=== PATIENT | female | born 1990 | race African-American/Black ===

== ENCOUNTER 2024-03-24 15:12 | Emergency (ER) | payer SELFPAY ==
[2024-03-24 15:34] VITALS: BP 129/80; PULSE 81; RESP 19; TEMP 98.3; BMI 22.4
[2024-03-24 17:22] LABS: BASO % 0.4 % (0-2.0); EOS % 0.5 % (0-4.5); HEMOGLOBIN 10.8 GM/dL (10.7-15.3); LYMPH % 28.2 % (8-40); MCH 26.4 pg (25.7-33.7); MCHC 31.7 g/dl (32.0-36.0); MEAN CELL VOLUME 83.1 fl (80-96); MEAN PLT VOLUME 9.5 fl (7.5-11.1); MONO % 9.7 % (3.8-10.2); NEUT % 61.2 % (42.8-82.8); PLATELET COUNT 206 10^3/uL (134-434); RBC 4.09 M/mm3 (3.60-5.2); RDW 15.9 % (11.6-15.6); WHITE BLOOD COUNT 7.7 K/mm3 (4.0-10.0)
[2024-03-24] MEDS: SODIUM CHLORIDE 0.9% 500 ML INFUS.BAG IV ONE (17:22)
[2024-03-24] MEDS: FAMOTIDINE 20 MG/50 ML IVPB 20 MG/50 ML MG IVPB ONE (17:22)
[2024-03-24] MEDS: MAG HYDROX/AL HYDROX/SIMETH 30 ML UNIT-DOSE CUP PO ONE (17:22)
[2024-03-24] MEDS: ONDANSETRON 4 MG/2 ML VIAL IVPUSH ONE (17:22)
[2024-03-24] MEDS: ACETAMINOPHEN 1000 MG/100 ML BAG IVPB ONE (17:22)
[2024-03-24 17:42] LABS: POTASSIUM 3.9 mmol/L (3.5-5.1)
[2024-03-24 17:44] LABS: CALCIUM 8.6 mg/dL (8.5-10.1)
[2024-03-24 17:45] LABS: ALBUMIN 3.8 g/dl (3.4-5.0); BLOOD UREA NITROGEN 10.3 mg/dL (7-18)
[2024-03-24 17:48] LABS: CREATININE 0.6 mg/dL (0.55-1.3)
[2024-03-24 17:49] LABS: BILIRUBIN,TOTAL 0.5 mg/dL (0.2-1)
[2024-03-24] MEDS: KETOROLAC TROMETHAMINE 15 MG/ML VIAL IVPUSH ONE (18:05)
[2024-03-24] MEDS ORDERED: KETOROLAC TROMETHAMINE 15 MG/ML VIAL ONE (18:06)
== END 2024-03-24 18:43 | disposition home or self-care (01) ==
LOC: JER 15:12
PROC: 3E033GC Introduction of Other Therapeutic Substance into Peripheral Vein, Percutaneous Approach (ICD-10-PCS; principal; 2024-03-24)
PROC: 3E033GC Introduction of Other Therapeutic Substance into Peripheral Vein, Percutaneous Approach (ICD-10-PCS; 2024-03-24)
PROC: 3E0333Z Introduction of Anti-inflammatory into Peripheral Vein, Percutaneous Approach (ICD-10-PCS; 2024-03-24)
DX: D57.00 Hb-SS disease with crisis, unspecified (principal); R11.2 Nausea with vomiting, unspecified; R19.7 Diarrhea, unspecified; R53.83 Other fatigue; R52 Pain, unspecified; R53.81 Other malaise; A08.4 Viral intestinal infection, unspecified; Z20.822 Contact with and (suspected) exposure to COVID-19
CPT/HCPCS: 0241U-QW; 36415; 80053; 83690; 84703; 85025; 85045; 93005; 93010; 99284-25

== ENCOUNTER 2024-06-01 23:19 | Emergency (ER) | payer SELFPAY ==
[2024-06-01 23:38] VITALS: BP 113/69; PULSE 84; RESP 20; TEMP 97.1; BMI 24.5
[2024-06-02] MEDS: morphine CARPU-JECT 2 MG/1 ML DISP.SYRIN IVPUSH ONE (00:52)
[2024-06-02] MEDS: ACETAMINOPHEN 1000 MG/100 ML BAG IVPB ONE (00:52)
[2024-06-02 01:21] LABS: HEMOGLOBIN 10.3 GM/dL (10.7-15.3)
[2024-06-02 01:22] LABS: BASO % 0.6 % (0-2.0); EOS % 1.3 % (0-4.5); HEMATOCRIT 32.5 % (32.4-45.2); LYMPH % 34.5 % (8-40); MCHC 31.7 g/dl (32.0-36.0); MEAN CELL VOLUME 78.8 fl (80-96); MEAN PLT VOLUME 9.1 fl (7.5-11.1); MONO % 8.1 % (3.8-10.2); NEUT % 55.5 % (42.8-82.8); PLATELET COUNT 255 10^3/uL (134-434); RBC 4.13 M/mm3 (3.60-5.2); RDW 17.2 % (11.6-15.6); WHITE BLOOD COUNT 7.6 K/mm3 (4.0-10.0)
[2024-06-02 01:45] LABS: POTASSIUM 3.7 mmol/L (3.5-5.1)
[2024-06-02 01:48] LABS: ALBUMIN 3.5 g/dl (3.4-5.0); BLOOD UREA NITROGEN 12.8 mg/dL (7-18)
[2024-06-02 01:51] LABS: CREATININE 0.6 mg/dL (0.55-1.3)
[2024-06-02 01:52] LABS: BILIRUBIN,TOTAL 0.3 mg/dL (0.2-1); TOT PROT 6.9 g/dl (6.4-8.2)
[2024-06-02] MEDS ORDERED: ONDANSETRON *ODT* 4 MG TABLET ONE (02:14)
[2024-06-02] MEDS: ONDANSETRON *ODT* 4 MG TABLET SL ONE (02:16)
[2024-06-02] MEDS: LACTATED RINGERS SOLUTION 1000 ML INFUS.BAG IV ONE (02:16)
[2024-06-02] MEDS ORDERED: METOCLOPRAMIDE HCL 10 MG TABLET (FP) PO ONE (02:34)
[2024-06-02 02:35] LABS: HIV INTERPRETATION NEGATIVE (NEGATIVE)
== END 2024-06-02 05:48 | disposition home or self-care (01) ==
LOC: JER 23:19
DX: O26.891 Other specified pregnancy related conditions, first trimester (principal); R10.30 Lower abdominal pain, unspecified; Z3A.01 Less than 8 weeks gestation of pregnancy
CPT/HCPCS: 36415; 76817-TC; 80053; 84702; 85025; 86803; 86850; 86900; 86901; 87389; 99284-25; Q0162

== ENCOUNTER 2025-04-30 21:33 | Emergency (ER) | payer OTHER ==
[2025-04-30 21:56] VITALS: BP 118/60; PULSE 85; RESP 18; TEMP 97.9; BMI 27.3
[2025-04-30] MEDS ORDERED: ACETAMINOPHEN 325 MG TABLET (FP) ONE (23:08)
[2025-04-30] MEDS: ACETAMINOPHEN 325 MG TABLET (FP) PO ONE (23:11)
[2025-04-30 23:12] LABS: ABSOLUTE IMMATURE GRANULOCYTES 0.02 x10^3/uL (0.0-0.031); BASOPHILS # 0.05 x10^3/uL (0.01-0.08); EOSINOPHIL % 1.6 % (0.7-5.8); EOSINOPHILS # 0.12 x10^3/uL (0.04-0.36); MCHC 30.0 g/dl (32.2-35.5); MEAN CELL VOLUME 88.9 fl (79.4-94.8); MEAN PLT VOLUME 10.8 fl (9.4-12.3); MONOCYTE # 0.68 x10^3/uL (0.24-0.86); MONOCYTE % 9.2 % (4.7-12.5); RDW 14.4 % (12.1-16.8)
[2025-04-30] MEDS: ALBUTEROL SO4 2.5/IPRATROPIUM 0.5 INH SOL 3 ML VIAL.NEB. NEB ONE (23:12)
[2025-04-30] MEDS: ACETAMINOPHEN 1000 MG/100 ML BAG IVPB ONE (23:13)
[2025-04-30 23:39] LABS: CO2 23.0 mmol/L (21-32); GLUCOSE,RANDOM 103.0 mg/dL (74-106)
[2025-04-30 23:42] LABS: SGOT/AST 13.0 U/L (15-37); SGPT/ALT 18.0 U/L (13-61)
[2025-04-30 23:43] LABS: CREATININE 0.7 mg/dL (0.55-1.3)
[2025-04-30 23:44] LABS: TOT PROT 7.5 g/dl (6.4-8.2)
[2025-04-30 23:45] LABS: ALK PHOS 57.0 U/L (45-117)
== END 2025-05-01 00:30 | disposition home or self-care (01) ==
LOC: JER 21:33
DX: R05.9 Cough, unspecified (principal); R11.0 Nausea; R53.83 Other fatigue; R50.9 Fever, unspecified; M54.50 Low back pain, unspecified; R06.02 Shortness of breath; N64.4 Mastodynia
CPT/HCPCS: 36415; 71046-TC-FY; 80053; 83735; 84703; 85025; 86803; 87389; 99284-25

== ENCOUNTER 2025-05-29 23:04 | Emergency (ER) | payer OTHER ==
[2025-05-29 23:11] VITALS: BP 115/68; PULSE 85; RESP 20; TEMP 98.1; BMI 26.0
[2025-05-30 00:06] LABS: ABSOLUTE IMMATURE GRANULOCYTES 0.01 x10^3/uL (0.0-0.031); BASOPHILS # 0.03 x10^3/uL (0.01-0.08); EOSINOPHIL % 1.4 % (0.7-5.8); EOSINOPHILS # 0.10 x10^3/uL (0.04-0.36); MCHC 30.6 g/dl (32.2-35.5); MEAN CELL VOLUME 88.0 fl (79.4-94.8); MEAN PLT VOLUME 11.6 fl (9.4-12.3); MONOCYTE # 0.41 x10^3/uL (0.24-0.86); MONOCYTE % 5.9 % (4.7-12.5); RDW 14.4 % (12.1-16.8)
[2025-05-30] MEDS ORDERED: ACETAMINOPHEN INJECTION 100 ML ONE (00:10)
[2025-05-30] MEDS ORDERED: ONDANSETRON 4 MG/2 ML VIAL ONE (00:11)
[2025-05-30 00:33] LABS: GLUCOSE,RANDOM 94.0 mg/dL (74-106)
[2025-05-30 00:34] LABS: TOT PROT 7.8 g/dl (6.4-8.2)
[2025-05-30 00:35] LABS: CO2 23.0 mmol/L (21-32)
[2025-05-30 00:36] LABS: ALK PHOS 55.0 U/L (40-150)
[2025-05-30 00:39] LABS: CREATININE 0.62 mg/dL (0.55-1.3); SGOT/AST 18.0 U/L (5-34); SGPT/ALT 13.0 U/L (0-55)
[2025-05-30 00:55] LABS: HCV DIAGNOSTIC IN-HOUSE W/RFLX NON-REACTIVE (NONREACTIVE)
[2025-05-30 00:56] LABS: HIV INTERPRETATION NEGATIVE (NEGATIVE)
[2025-05-30] MEDS ORDERED: ONDANSETRON *ODT* 4 MG TABLET ONE (01:09)
[2025-05-30] MEDS: ONDANSETRON *ODT* 4 MG TABLET SL ONE (01:11)
[2025-05-30] MEDS: ACETAMINOPHEN 1000 MG/100 ML BAG IVPB ONE (05:04)
[2025-05-30] MEDS: ONDANSETRON 4 MG/2 ML VIAL IVPUSH ONE (05:04)
[2025-05-30] MEDS: SODIUM CHLORIDE 0.9% 500 ML INFUS.BAG IV ONE (05:04)
== END 2025-05-30 08:42 | disposition home or self-care (01) ==
LOC: JER 23:04
PROC: 3E033NZ Introduction of Analgesics, Hypnotics, Sedatives into Peripheral Vein, Percutaneous Approach (ICD-10-PCS; principal; 2025-05-29)
DX: R10.11 Right upper quadrant pain (principal); R10.12 Left upper quadrant pain; R10.31 Right lower quadrant pain; R10.32 Left lower quadrant pain; R11.2 Nausea with vomiting, unspecified; R19.7 Diarrhea, unspecified; F43.9 Reaction to severe stress, unspecified
CPT/HCPCS: 36415; 80053; 83690; 85025; 86803; 87389; 99284-25; Q0162

== ENCOUNTER 2025-06-02 22:56 | Emergency (ER) | payer OTHER ==
[2025-06-02 23:01] VITALS: BP 115/70; PULSE 60; RESP 18; TEMP 97.7; BMI 26.0
[2025-06-03] MEDS ORDERED: ACETAMINOPHEN INJECTION 100 ML ONE (00:15)
[2025-06-03] MEDS ORDERED: ONDANSETRON 4 MG/2 ML VIAL ONE (00:15)
[2025-06-03] MEDS ORDERED: KETOROLAC TROMETHAMINE 15 MG/ML VIAL ONE (00:18)
[2025-06-03] MEDS: ACETAMINOPHEN 1000 MG/100 ML BAG IVPB ONE (00:42)
[2025-06-03] MEDS: KETOROLAC TROMETHAMINE 15 MG/ML VIAL IVPUSH ONE (00:42)
[2025-06-03 00:48] LABS: ABSOLUTE IMMATURE GRANULOCYTES 0.01 x10^3/uL (0.0-0.031); BASOPHILS # 0.03 x10^3/uL (0.01-0.08); EOSINOPHIL % 1.4 % (0.7-5.8); EOSINOPHILS # 0.09 x10^3/uL (0.04-0.36); MCHC 29.6 g/dl (32.2-35.5); MEAN CELL VOLUME 89.8 fl (79.4-94.8); MEAN PLT VOLUME 11.3 fl (9.4-12.3); MONOCYTE # 0.39 x10^3/uL (0.24-0.86); MONOCYTE % 6.3 % (4.7-12.5); RDW 14.3 % (12.1-16.8)
[2025-06-03] MEDS: SODIUM CHLORIDE 0.9% 500 ML INFUS.BAG IV ONE (01:04)
[2025-06-03] MEDS: ONDANSETRON 4 MG/2 ML VIAL IVPUSH ONE (01:04)
[2025-06-03 01:06] LABS: BG HCT 36.0 % (32.4-45.2); VENOUS BASE EXCESS -1.5 mmol/L (-2-2); VENOUS O2 SATURATION 38.5 % (70-80); VENOUS PCO2 50.7 mmHg (38-52); VENOUS PH 7.313 (7.310-7.410)
[2025-06-03 01:09] LABS: GLUCOSE,RANDOM 81.0 mg/dL (74-106)
[2025-06-03 01:10] LABS: TOT PROT 7.9 g/dl (6.4-8.2)
[2025-06-03 01:11] LABS: CO2 25.0 mmol/L (21-32)
[2025-06-03 01:13] LABS: ALK PHOS 54.0 U/L (40-150)
[2025-06-03 01:15] LABS: SGOT/AST 22.0 U/L (5-34); SGPT/ALT 19.0 U/L (0-55)
[2025-06-03 01:16] LABS: CREATININE 0.77 mg/dL (0.55-1.3)
[2025-06-03 02:22] LABS: HCV DIAGNOSTIC IN-HOUSE W/RFLX NON-REACTIVE (NONREACTIVE); HIV INTERPRETATION NEGATIVE (NEGATIVE)
[2025-06-03] MEDS ORDERED: POTASSIUM CHLORIDE ORAL LIQUID 20 MEQ/15 ML ONE (02:39)
[2025-06-03] MEDS: POTASSIUM CHLORIDE ORAL LIQUID 20 MEQ/15 ML PO ONE (02:43)
[2025-06-03] MEDS ORDERED: KCL 10 MEQ IVPB 10 MEQ/100 ML INFUS.BAG IVPB SCH (02:45)
== END 2025-06-03 03:07 | disposition home or self-care (01) ==
LOC: JER 22:56
PROC: 3E033NZ Introduction of Analgesics, Hypnotics, Sedatives into Peripheral Vein, Percutaneous Approach (ICD-10-PCS; principal; 2025-06-03)
PROC: 3E0333Z Introduction of Anti-inflammatory into Peripheral Vein, Percutaneous Approach (ICD-10-PCS; 2025-06-03)
PROC: 3E033GC Introduction of Other Therapeutic Substance into Peripheral Vein, Percutaneous Approach (ICD-10-PCS; 2025-06-03)
DX: M79.10 Myalgia, unspecified site (principal); R11.2 Nausea with vomiting, unspecified; R07.89 Other chest pain; R10.84 Generalized abdominal pain; R53.83 Other fatigue; Z59.00 Homelessness unspecified
CPT/HCPCS: 36415; 71045-TC-FY; 74176-TC; 76705-TC; 80053; 82803; 83605; 83690; 83735; 84484; 84703; 85025; 86803; 87389; 93005; 93010; 99285-25